=== PATIENT | female | born 1990 | race American Indian/Alaskan Native ===

== ENCOUNTER 2017-08-26 06:27 | Inpatient (IN) | payer MEDICAID ==
[2017-08-26] MEDS ORDERED: KETALAR IV ONE (06:46)
--- NOTE | 2017-08-26 06:48 | Emergency Department Report ---
Upper Extremity - HPI Chief Complaint: Extremity Injury, Upper Stated Complaint: ARM PAIN Time Seen by Provider: 08/26/17 06:42 Upper Extremity: Right Arm Occurred When: Today Mechanism: Fall Severity: severe Symptoms: Yes Pain with Movement, Yes Deformity, Yes Limited Range of Movement, Yes Numbness, Yes Weakness, Yes Swelling, No Bruising/Ecchymosis, No Laceration or Abrasion Other History: This is a 27-year-old female, previously unknown to the provider , right-hand dominant, denies chronic medical conditions. Patient presents to the ER with EMS after mechanical fall, landing on her right arm. Did not hit her head or her neck. Admits to right hand weakness and numbness. No other injuries. Symptoms are constant. ED Review of Systems ROS: Stated complaint: ARM PAIN Other details as noted in HPI Constitutional: denies: fever Eyes: denies: eye discharge ENT: denies: epistaxis Respiratory: denies: cough Cardiovascular: denies: chest pain Gastrointestinal: denies: vomiting Genitourinary: as per HPI Musculoskeletal: arthralgia, myalgia Skin: denies: lesions Neurological: weakness Psychiatric: anxiety ED Past Medical Hx - Past Medical History Previous Medical History?: Yes Additional medical history: chronic knee pain - Surgical History Past Surgical History?: Yes Hx Cholecystectomy: Yes Additional Surgical History: c setion - Social History Smoking Status: Current Every Day Smoker Substance Use Type: Alcohol Upper Extremity Exam - Exam General: Vital signs noted. No distress. Alert and acting appropriately. Sensation is intact in the bilateral deltoid distribution. 2+ radial pulses noted in the bilateral upper extremities. Sensation is decreased to light touch in the right thumb/radial nerve distribution. Thumb opposition is weak to the pointer, middle, ring and pinky finger. Abduction and adduction on fingers 2 through 5 on the right upper extremity also weak and diminished. Decreased sensation to light touch in the dorsal aspect of the right hand. The compartments are soft. 5/5 strength left upper, bilateral lower extremities, sensation intact to light touch left upper, bilateral lower extremities Head and Torso: No HEENT Abnormality, No Neck Tenderness, No Chest/Lungs Abnormality, No Abdominal Tenderness, No Back Tenderness Shoulder Exam: No Shoulder Tenderness, No Clavicle Tenderness, No Shoulder Deformity, No AC Joint Tenderness Arm Exam: Yes Arm/Humerus Tenderness, Yes Arm Deformity Elbow: No Elbow Tenderness, No Elbow Deformity Forearm: No Forearm Tenderness, No Forearm Deformity, No Pain with Pronation, No Pain with Supination Wrist: No Wrist Tenderness, No Normal ROM in Wrist, No Wrist Deformity, No Snuffbox Tenderness, No Pain with Axial Thumb Compression Hand: No Hand Tenderness, No Hand Deformity, No Digit Tenderness, No Normal ROM in Digit(s) [facility] Exam: Yes Normal Distal Pulses, Yes Normal Capillary Refill, No Broken Skin , No Normal Distal Sensation ED Medical Decision Making - Lab Data Result diagrams: 08/26/17 08:05 08/26/17 08:05 Vital Signs 08/26/17 08/26/17 08/26/17 07:00 07:14 07:23 Temperature 97.9 F Pulse Rate 78 99 H Respiratory 18 20 14 Rate Blood Pressure 128/78 157/75 [Left] O2 Sat by Pulse 99 99 99 Oximetry Lab Results 08/26/17 08/26/17 08/26/17 Range/Units 08:05 08:05 08:05 WBC 13.5 H (4.5-11.0) K/mm3 RBC 3.92 (3.65-5.03) M/mm3 Hgb 12.3 (10.1-14.3) gm/dl Hct 37.1 (30.3-42.9) % MCV 95 (79-97) fl MCH 31 (28-32) pg MCHC 33 (30-34) % RDW 12.4 L (13.2-15.2) % Plt Count 220 (140-440) K/mm3 PT 13.9 (12.2-14.9) Sec. INR 1.02 (0.87-1.13) APTT 26.9 (24.2-36.6) Sec. Sodium 136 L (137-145) mmol/L Potassium 3.6 (3.6-5.0) mmol/L Chloride 101.5 (98-107) mmol/L Carbon Dioxide 23 (22-30) mmol/L Anion Gap 15 mmol/L BUN 13 (7-17) mg/dL Creatinine 0.4 L (0.7-1.2) mg/dL Estimated GFR > 60 ml/min BUN/Creatinine Ratio 33 % Glucose 168 H (65-100) mg/dL Calcium 8.1 L (8.4-10.2) mg/dL HCG, Quant (0-4) mIU/mL 08/26/17 Range/Units 08:05 WBC (4.5-11.0) K/mm3 RBC (3.65-5.03) M/mm3 Hgb (10.1-14.3) gm/dl Hct (30.3-42.9) % MCV (79-97) fl MCH (28-32) pg MCHC (30-34) % RDW (13.2-15.2) % Plt Count (140-440) K/mm3 PT (12.2-14.9) Sec. INR (0.87-1.13) APTT (24.2-36.6) Sec. Sodium (137-145) mmol/L Potassium (3.6-5.0) mmol/L Chloride (98-107) mmol/L Carbon Dioxide (22-30) mmol/L Anion Gap mmol/L BUN (7-17) mg/dL Creatinine (0.7-1.2) mg/dL Estimated GFR ml/min BUN/Creatinine Ratio % Glucose (65-100) mg/dL Calcium (8.4-10.2) mg/dL HCG, Quant < 2 (0-4) mIU/mL - Radiology Data Radiology results: report reviewed, image reviewed X-ray of the shoulder demonstrates no shoulder dislocation. There is a distal right-sided humerus fracture. X-ray of the elbow again redemonstrates right- sided humerus fracture - Medical Decision Making Differential diagnosis: Distal radius fracture, radial nerve palsy Assessment and plan: 27-year-old female with distal radius fracture, indication of radial nerve dysfunction. I have emergently consult to the orthopedic physician on-call, Dr. Randhawa, and have described the patient's symptoms and physical exam, and have requested an emergency evaluation for radial nerve compromise. Dr. Randhawa indicates he is going to evaluate the patient, recommends admission, medical team to admit, Dr. Randhawa presumably to operatively intervene. Case was presented to the Hospital physician, Dr. Encarnacion, who accepts the patient to the medical service. Critical care attestation.: If time is entered above; I have spent that time in minutes in the direct care of this critically ill patient, excluding procedure time. ED Disposition Clinical Impression: Right humeral fracture, Radial nerve palsy Disposition: OP ADMIT IP TO THIS HOSP Is pt being admited?: Yes Condition: Good
[2017-08-26] MEDS ORDERED: ZOFRAN IV ONE (07:37)
--- NOTE | 2017-08-26 08:06 | XRay Report ---
FINAL REPORT EXAM: XR ELBOW 1V RT HISTORY: right arm pain COMPARISONS: None. FINDINGS: Lateral portable view of the right elbow Oblique distal right humerus fracture. Posterior subluxation of the distal humerus one full diaphyseal with relative to the proximal humerus. Approximately 1 centimeter of foreshortening. Elbow joint appears intact on this view. IMPRESSION: Oblique extra-articular distal right humerus fracture with subluxation and foreshortening.
--- NOTE | 2017-08-26 08:07 | XRay Report ---
FINAL REPORT EXAM: XR HUMERUS 1V RT HISTORY: right arm pain COMPARISONS: None. FINDINGS: Single portable view of the right humerus Extra-articular distal right humeral diaphyseal fracture is obliquely oriented. There is posterior subluxation of the distal humerus approximately 1 full diaphyseal with. Approximately 1 centimeter of foreshortening. IMPRESSION: Extra-articular distal right humerus fracture with subluxation and foreshortening.
--- NOTE | 2017-08-26 08:08 | XRay Report ---
FINAL REPORT EXAM: XR SHOULDER 1V RT HISTORY: right arm paim COMPARISONS: None. FINDINGS: Single AP view of the right shoulder Distal right humerus fracture discussed on humerus and elbow radiographs of the same date. Remainder of the humerus appears intact. Acromioclavicular and coracoclavicular intervals are within normal limits. No displaced rib fracture identified. Incomplete evaluation of the chest is unremarkable. IMPRESSION: Distal humerus fracture. No other osseous abnormalities identified on this single AP view of the right shoulder.
[2017-08-26 08:28] LABS: Hematocrit 37.1 % (30.3-42.9); Hemoglobin 12.3 gm/dl (10.1-14.3); Mean Corpuscular HGB Conc 33 % (30-34); Mean Corpuscular Hemoglobin 31 pg (28-32); Mean Corpuscular Volume 95 fl (79-97); Platelet Count 220 K/mm3 (140-440); Red Blood Count 3.92 M/mm3 (3.65-5.03); Red Cell Distribution Width 12.4 % (13.2-15.2); White Blood Count 13.5 K/mm3 (4.5-11.0)
[2017-08-26] MEDS ORDERED: REGLAN ONE (08:28)
[2017-08-26] MEDS ORDERED: SUBLIMAZE IV ONE ×2 (08:32→10:44)
[2017-08-26] MEDS ORDERED: REGLAN IV ONE (08:32)
[2017-08-26 08:39] LABS: INR 1.02 (0.87-1.13); Partial Thromboplastin Time 26.9 Sec. (24.2-36.6)
[2017-08-26 08:44] LABS: Blood Urea Nitrogen 13 mg/dL (7-17); Carbon Dioxide 23 mmol/L (22-30)
[2017-08-26 08:45] LABS: Anion Gap 15 mmol/L; BUN/Creatinine Ratio 33; Calcium 8.1 mg/dL (8.4-10.2); Chloride 101.5 mmol/L (98-107); Glucose 168 mg/dL (65-100); Potassium 3.6 mmol/L (3.6-5.0); Sodium 136 mmol/L (137-145)
--- NOTE | 2017-08-26 08:53 | Progress Note ---
Hospitalist Physical - Constitutional Vitals: Temp Pulse Resp BP Pulse Ox 97.9 F 99 H 14 157/75 99 08/26/17 07:00 08/26/17 07:23 08/26/17 07:23 08/26/17 07:23 08/26/17 07:23 Results - Labs CBC & Chem 7: 08/26/17 08:05 08/26/17 08:05 Labs: Laboratory Last Values WBC 13.5 K/mm3 (4.5-11.0) H 08/26/17 08:05 RBC 3.92 M/mm3 (3.65-5.03) 08/26/17 08:05 Hgb 12.3 gm/dl (10.1-14.3) 08/26/17 08:05 Hct 37.1 % (30.3-42.9) 08/26/17 08:05 MCV 95 fl (79-97) 08/26/17 08:05 MCH 31 pg (28-32) 08/26/17 08:05 MCHC 33 % (30-34) 08/26/17 08:05 RDW 12.4 % (13.2-15.2) L 08/26/17 08:05 Plt Count 220 K/mm3 (140-440) 08/26/17 08:05 PT 13.9 Sec. (12.2-14.9) 08/26/17 08:05 INR 1.02 (0.87-1.13) 08/26/17 08:05 APTT 26.9 Sec. (24.2-36.6) 08/26/17 08:05 Sodium 136 mmol/L (137-145) L 08/26/17 08:05 Potassium 3.6 mmol/L (3.6-5.0) 08/26/17 08:05 Chloride 101.5 mmol/L (98-107) 08/26/17 08:05 Carbon Dioxide 23 mmol/L (22-30) 08/26/17 08:05 Anion Gap 15 mmol/L 08/26/17 08:05 BUN 13 mg/dL (7-17) 08/26/17 08:05 Creatinine 0.4 mg/dL (0.7-1.2) L 08/26/17 08:05 Estimated GFR > 60 ml/min 08/26/17 08:05 BUN/Creatinine Ratio 33 % 08/26/17 08:05 Glucose 168 mg/dL (65-100) H 08/26/17 08:05 Calcium 8.1 mg/dL (8.4-10.2) L 08/26/17 08:05 HCG, Quant < 2 mIU/mL (0-4) 08/26/17 08:05
[2017-08-26] MEDS ORDERED: MILK OF MAGNESIA PO PRN (09:01)
[2017-08-26] MEDS ORDERED: TYLENOL PO PRN (09:01)
[2017-08-26] MEDS ORDERED: DULCOLAX PR PRN (10:00)
[2017-08-26] MEDS ORDERED: D5NS 1,000 ML IV SCH (10:00)
[2017-08-26] MEDS ORDERED: SUBLIMAZE IV PRN (11:57)
[2017-08-26] MEDS ORDERED: SUBLIMAZE ONE (15:02)
[2017-08-26] MEDS: MOTRIN PO SCH (15:30)
[2017-08-26] MEDS: SUBLIMAZE IV PRN (20:00)
[2017-08-27] MEDS: ZOFRAN IV PRN ×2 (04:05→21:30)
[2017-08-27] MEDS: SUBLIMAZE IV PRN ×2 (04:05→09:18)
[2017-08-27] MEDS ORDERED: PEPCID PO NR (10:00)
[2017-08-27] MEDS: MOTRIN PO SCH ×2 (10:30→22:34)
--- NOTE | 2017-08-27 14:01 | Progress Note ---
Assessment and Plan Assessment and plan: Displaced Fracture right humerus with radial nerve injury after fall. patient has been admitted to med/surg floor. Right upper extremity in splint. For surgery today. Patient is allergic to Nalbuphine. Continue Fentanyl iv prn for pain management. Right radial nerve injury due to fracture humerus. Patient right arm in splint. DVT prophylaxis. Lovenox Full code status History Interval history: Less pain on right arm Still have numbness right upper ext Hospitalist Physical - Physical exam Narrative exam: Gen Appearance: Not in acute distress, HEENT: normocephalic, atraumatic Neck: supple, no JVD Lungs: Clear to auscultation bilaterally, no crackles, no wheezing, Heart: S1 and S2 regular, no murmurs,no rubs or gallop, Abdomen: Soft , non tender, non distended, normal bowel sounds Extremity: right upper extremity deformed, in splint, less tender, no clubbing or cyanosis, Neuro : Awake,alert, oriented x 3, normal speech, moves all extremities, decreased sensation distribution of radial nerve on right - Constitutional Vitals: Temp Pulse Resp BP Pulse Ox 98.9 F 67 18 120/79 98 08/27/17 08:10 08/27/17 08:10 08/27/17 10:30 08/27/17 08:10 08/27/17 08:10 Results - Labs CBC & Chem 7: 08/28/17 05:43 08/28/17 05:43 Labs: Laboratory Last Values WBC 13.5 K/mm3 (4.5-11.0) H 08/26/17 08:05 RBC 3.92 M/mm3 (3.65-5.03) 08/26/17 08:05 Hgb 12.3 gm/dl (10.1-14.3) 08/26/17 08:05 Hct 37.1 % (30.3-42.9) 08/26/17 08:05 MCV 95 fl (79-97) 08/26/17 08:05 MCH 31 pg (28-32) 08/26/17 08:05 MCHC 33 % (30-34) 08/26/17 08:05 RDW 12.4 % (13.2-15.2) L 08/26/17 08:05 Plt Count 220 K/mm3 (140-440) 08/26/17 08:05 PT 13.9 Sec. (12.2-14.9) 08/26/17 08:05 INR 1.02 (0.87-1.13) 08/26/17 08:05 APTT 26.9 Sec. (24.2-36.6) 08/26/17 08:05 Sodium 136 mmol/L (137-145) L 08/26/17 08:05 Potassium 3.6 mmol/L (3.6-5.0) 08/26/17 08:05 Chloride 101.5 mmol/L (98-107) 08/26/17 08:05 Carbon Dioxide 23 mmol/L (22-30) 08/26/17 08:05 Anion Gap 15 mmol/L 08/26/17 08:05 BUN 13 mg/dL (7-17) 08/26/17 08:05 Creatinine 0.4 mg/dL (0.7-1.2) L 08/26/17 08:05 Estimated GFR > 60 ml/min 08/26/17 08:05 BUN/Creatinine Ratio 33 % 08/26/17 08:05 Glucose 168 mg/dL (65-100) H 08/26/17 08:05 Calcium 8.1 mg/dL (8.4-10.2) L 08/26/17 08:05 HCG, Quant < 2 mIU/mL (0-4) 08/26/17 08:05 Blood Type A POSITIVE 08/26/17 08:05 Antibody Screen Negative 08/26/17 08:05
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
[2017-08-27] MEDS: LACTATED RINGERS 1,000 ML IV SCH ×2 (14:54→21:38)
[2017-08-27] MEDS: VERSED IV NR ×2 (14:55→15:35)
[2017-08-27] MEDS ORDERED: DILAUDID IV ONE (15:05)
--- NOTE | 2017-08-27 15:14 | Anesthesia Consultation ---
Anesthesia Consult and Med Hx Date of service: 08/27/17 - Airway Anesthetic Teeth Evaluation: Good ROM Head & Neck: Adequate Mental/Hyoid Distance: Adequate Mallampati Class: Class I Intubation Access Assessment: Good - Pulmonary Exam CTA: Yes - Cardiac Exam Cardiac Exam: RRR - Pre-Operative Health Status ASA Pre-Surgery Classification: ASA2 Proposed Anesthetic Plan: General Nerve Block: IS - Pulmonary Hx Smoking: Yes Hx Asthma: No COPD: No Hx Pneumonia: No - Central Nervous System Hx Psychiatric Problems: No - Endocrine Hx End Stage Renal Disease: No
--- NOTE | 2017-08-27 15:14 | Anesthesia Day of Surgery ---
Anesthesia Day of Surgery - Day of Surgery Patient Examined: Yes Patient H&P Reviewed: Yes Patient is NPO: Yes
[2017-08-27] MEDS ORDERED: MARCAINE 0.5% 30 ML INFILTRATI ONE (15:25)
[2017-08-27] MEDS ORDERED: ADRENALIN ONE (15:27)
[2017-08-27] MEDS ORDERED: DILAUDID ONE (16:17)
[2017-08-27] MEDS ORDERED: DIPRIVAN 10 MG/ML IV ONE (16:17)
[2017-08-27] MEDS ORDERED: XYLOCAINE MPF 2% ONE (16:17)
[2017-08-27] MEDS ORDERED: ANCEF ONE (17:05)
[2017-08-27] MEDS ORDERED: ZOFRAN ONE (18:24)
[2017-08-27] MEDS ORDERED: DECADRON ONE (18:24)
[2017-08-27] MEDS: DILAUDID IV PRN ×2 (19:01→21:29)
--- NOTE | 2017-08-27 20:05 | Post Anesthesia Evaluation ---
- Post Anesthesia Evaluation Patient Participated: Yes Airway Patent: Yes Stable Respiratory Function: Yes Temp > 96.8F: Yes Pain Manageable: Yes Adequeate Hydration: Yes Anesthesia Complications: No
--- NOTE | 2017-08-27 22:57 | Procedure Note ---
Date of procedure: 08/27/17 Pre-op diagnosis: displaced right radial shaft fracture with radial nerve palsy Post-op diagnosis: same Procedure: Open reduction internal fixation right humerus Indication A 27-year-old female who came to the emergency room complaining of right arm pain and deformity after a fall from her bed, x-rays taken in the emergency room reveal a displaced distal third right humerus fracture patient was also noted to have a radial nerve palsy with the inability to actively extend the wrist and loss of sensation in the radial nerve distribution Procedure Brought to the OR after being given a scalene nerve block for postop pain management, she was placed on the OR table in a supine position following induction and intubation by anesthesia the patient was turned to into the left lateral decubitus position at which point the right shoulder and arm was prepped and draped in the usual sterile manner. A timeout procedure was done to identify the patient and the correct operative site. The arm was exsanguinated followed by inflation of the pneumatic tourniquet to 250 mmHg. A posterior incision was made along the humerus and this was taken down through skin and subcutaneous the tendon of the triceps muscle was incised as well as the muscle belly this brought us down on the posterior aspect of the humeral shaft Care was taken to identify the radial nerve was seen and appeared to be intact however there was some bruising noted along the along the epineurium but again the nerve was intact and would not severed using a vessel loop the nerve was then retracted out of the operative field and our dissection was carried to the proximal fragment following manipulation the bony fragments were temporarily fixed using a interfragmentary screw. Next a a long lateral locked plate was applied to the humeral surface was then secured to the bone by way of locked screws of various lengths using the C-arm fluoroscope the reduction was checked as well as the placement of our hardware and the fracture appeared anatomic and the screws appeared to grab both the near and far cortices. Stability was checked and it appeared to be quite stable next the wound was then copiously irrigated the triceps muscle and tendon was repaired followed by closure of the subcutaneous tissue and skin with metallic isabella routine post op Dressings were applied. 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
[2017-08-28] MEDS: MOTRIN PO SCH ×8 (01:06→23:19)
[2017-08-28] MEDS: ZOFRAN IV PRN (02:30)
[2017-08-28 05:56] LABS: Hematocrit 33.6 % (30.3-42.9); Hemoglobin 11.4 gm/dl (10.1-14.3); Mean Corpuscular HGB Conc 34 % (30-34); Mean Corpuscular Hemoglobin 33 pg (28-32); Mean Corpuscular Volume 96 fl (79-97); Platelet Count 204 K/mm3 (140-440); Red Blood Count 3.51 M/mm3 (3.65-5.03); Red Cell Distribution Width 12.3 % (13.2-15.2); White Blood Count 9.3 K/mm3 (4.5-11.0)
[2017-08-28 06:18] LABS: Anion Gap 18 mmol/L; BUN/Creatinine Ratio 16; Blood Urea Nitrogen 8 mg/dL (7-17); Calcium 8.7 mg/dL (8.4-10.2); Carbon Dioxide 26 mmol/L (22-30); Chloride 99.2 mmol/L (98-107); Glucose 135 mg/dL (65-100); Sodium 139 mmol/L (137-145)
--- NOTE | 2017-08-28 08:13 | XRay Report ---
RIGHT ELBOW 2 VIEWS: 08/26/17 09:02:00 CLINICAL: Intraoperative exam FINDINGS: 2 views demonstrate a a plate and screws at the humeral diaphysis and metaphysis. The plate traverses a fracture which is not well delineated. There is cortical offset at the fracture. For more details, refer to the operative report.
--- NOTE | 2017-08-28 10:41 | Progress Note ---
Subjective Date of service: 08/28/17 Interval history: 1st POD after ORIF of right humerus Patient is in the bed, comfortable. Pain is well controlled with pain meds. Ambulated well. No nausea or vomiting. Block receding appropriately. No anesthesia complications Objective - Constitutional Vitals: Vital Signs - 12hr 08/27/17 08/28/17 08/28/17 23:46 04:18 07:10 Temperature 98.3 F 98.0 F 98.2 F Pulse Rate 70 74 72 Respiratory 18 18 16 Rate Blood Pressure 138/82 124/77 128/69 O2 Sat by Pulse 97 100 98 Oximetry - Labs CBC & Chem 7: 08/28/17 05:43 08/28/17 05:43 Labs: Abnormal lab results 08/28/17 08/28/17 Range/Units 05:43 05:43 RBC 3.51 L (3.65-5.03) M/mm3 MCH 33 H (28-32) pg RDW 12.3 L (13.2-15.2) % Creatinine 0.5 L (0.7-1.2) mg/dL Glucose 135 H (65-100) mg/dL
--- NOTE | 2017-08-28 11:48 | Progress Note ---
Assessment and Plan Assessment and plan: Displaced Fracture right humerus with radial nerve injury after fall. Patient has been admitted to med/surg floor. She had open reduction and internal fixation right humerus yesterday by Dr. Randhawa. Patient is allergic to Nalbuphine, has been on Fentanyl iv prn for pain management. Will switch to Percocet. She states she is not allergic to Percocet and has used before with no adverse reaction. Right radial nerve palsy due to injury due to fracture of humerus. s/p surgery yesterday May need wrist brace on discharge. DVT prophylaxis. Lovenox Full code status History Interval history: Less pain on right arm, post op Still have numbness right upper ext Hospitalist Physical - Physical exam Narrative exam: Gen Appearance: Not in acute distress, HEENT: normocephalic, atraumatic Neck: supple, no JVD Lungs: Clear to auscultation bilaterally, no crackles, no wheezing, Heart: S1 and S2 regular, no murmurs,no rubs or gallop, Abdomen: Soft , non tender, non distended, normal bowel sounds Extremity: right upper extremity covered with dressing, bandage Neuro : Awake,alert, oriented x 3, normal speech, decreased sensation distribution of radial nerve on right, wrist drop on right - Constitutional Vitals: Temp Pulse Resp BP Pulse Ox 98.2 F 72 16 128/69 98 08/28/17 07:10 08/28/17 07:10 08/28/17 07:10 08/28/17 07:10 08/28/17 10:47 General appearance: Present: no acute distress Results - Labs CBC & Chem 7: 08/28/17 05:43 08/28/17 05:43 Labs: Laboratory Last Values WBC 9.3 K/mm3 (4.5-11.0) 08/28/17 05:43 RBC 3.51 M/mm3 (3.65-5.03) L 08/28/17 05:43 Hgb 11.4 gm/dl (10.1-14.3) 08/28/17 05:43 Hct 33.6 % (30.3-42.9) 08/28/17 05:43 MCV 96 fl (79-97) 08/28/17 05:43 MCH 33 pg (28-32) H 08/28/17 05:43 MCHC 34 % (30-34) 08/28/17 05:43 RDW 12.3 % (13.2-15.2) L 08/28/17 05:43 Plt Count 204 K/mm3 (140-440) 08/28/17 05:43 PT 13.9 Sec. (12.2-14.9) 08/26/17 08:05 INR 1.02 (0.87-1.13) 08/26/17 08:05 APTT 26.9 Sec. (24.2-36.6) 08/26/17 08:05 Sodium 139 mmol/L (137-145) 08/28/17 05:43 Potassium 4.0 mmol/L (3.6-5.0) 08/28/17 05:43 Chloride 99.2 mmol/L (98-107) 08/28/17 05:43 Carbon Dioxide 26 mmol/L (22-30) 08/28/17 05:43 Anion Gap 18 mmol/L 08/28/17 05:43 BUN 8 mg/dL (7-17) 08/28/17 05:43 Creatinine 0.5 mg/dL (0.7-1.2) L 08/28/17 05:43 Estimated GFR > 60 ml/min 08/28/17 05:43 BUN/Creatinine Ratio 16 % 08/28/17 05:43 Glucose 135 mg/dL (65-100) H 08/28/17 05:43 Calcium 8.7 mg/dL (8.4-10.2) 08/28/17 05:43 HCG, Quant < 2 mIU/mL (0-4) 08/26/17 08:05 Blood Type A POSITIVE 08/26/17 08:05 Antibody Screen Negative 08/26/17 08:05
[2017-08-28] MEDS: PERCOCET 5/325 PO PRN ×3 (12:50→20:35)
--- NOTE | 2017-08-28 13:17 | Progress Note ---
Assessment and Plan s/p ORIF right humerus, radial nerve palsy... will order wrist brace for wrist drop, hopefully dc to home soon Subjective Date of service: 08/28/17 Interval history: feeling much better today, less pain although still with some neuropathic symtoms right hand... Objective Vital signs: Vital Signs - 12hr 08/28/17 08/28/17 08/28/17 04:18 07:10 10:47 Temperature 98.0 F 98.2 F Pulse Rate 74 72 Respiratory 18 16 Rate Blood Pressure 124/77 128/69 O2 Sat by Pulse 100 98 98 Oximetry Narrative Exam: post op dressing intact, no active ext right wrist, good capillary refill... - Labs CBC & BMP: 08/28/17 05:43 08/28/17 05:43 Labs: Abnormal lab results 08/28/17 08/28/17 Range/Units 05:43 05:43 RBC 3.51 L (3.65-5.03) M/mm3 MCH 33 H (28-32) pg RDW 12.3 L (13.2-15.2) % Creatinine 0.5 L (0.7-1.2) mg/dL Glucose 135 H (65-100) mg/dL
[2017-08-28] MEDS ORDERED: LOVENOX SUB-Q SCH (22:00)
[2017-08-29] MEDS: MOTRIN PO SCH ×3 (04:26→16:20)
[2017-08-29] MEDS: PERCOCET 5/325 PO PRN ×2 (07:44→14:03)
--- NOTE | 2017-08-29 12:53 | Progress Note ---
Assessment and Plan will dc today with return f/u appointment 1 wk Subjective Date of service: 08/29/17 Interval history: doing well, no c/o's Objective Vital signs: Vital Signs - 12hr 08/29/17 08/29/17 08/29/17 05:15 07:50 07:53 Temperature 98.3 F Pulse Rate 99 H 68 Respiratory 17 Rate Blood Pressure 107/78 Blood Pressure [Left] O2 Sat by Pulse 100 100 100 Oximetry 08/29/17 08/29/17 08:00 12:14 Temperature 99 F 98.8 F Pulse Rate 78 90 Respiratory 18 18 Rate Blood Pressure 117/72 Blood Pressure 119/79 [Left] O2 Sat by Pulse 99 Oximetry - Labs CBC & BMP: 08/28/17 05:43 08/28/17 05:43
[2017-08-29 13:23] LABS: Hematocrit 31.2 % (30.3-42.9); Hemoglobin 10.2 gm/dl (10.1-14.3); Mean Corpuscular HGB Conc 33 % (30-34); Mean Corpuscular Hemoglobin 32 pg (28-32); Mean Corpuscular Volume 96 fl (79-97); Platelet Count 196 K/mm3 (140-440); Red Blood Count 3.24 M/mm3 (3.65-5.03); Red Cell Distribution Width 12.3 % (13.2-15.2); White Blood Count 7.6 K/mm3 (4.5-11.0)
[2017-08-29 13:41] LABS: Anion Gap 13 mmol/L; BUN/Creatinine Ratio 28; Blood Urea Nitrogen 11 mg/dL (7-17); Calcium 8.4 mg/dL (8.4-10.2); Carbon Dioxide 29 mmol/L (22-30); Glucose 99 mg/dL (65-100); Potassium 3.8 mmol/L (3.6-5.0); Sodium 139 mmol/L (137-145)
[2017-08-29 17:20] VITALS: BP 121/75
--- NOTE | 2017-08-29 18:15 | Discharge Summary ---
Providers - Providers Date of Admission: 08/26/17 09:02 Attending physician: SARY STEPHENS MD Primary care physician: [employer] Hospitalization Condition: Good Disposition: DC-01 TO HOME OR SELFCARE Core Measure Documentation - Palliative Care Palliative Care/ Comfort Measures: Not Applicable Exam - Constitutional Vitals: Temp Pulse Resp BP Pulse Ox 98.5 F 74 18 121/75 100 08/29/17 15:59 08/29/17 15:59 08/29/17 15:59 08/29/17 15:59 08/29/17 15:59 Plan Follow up with: PRIMARY CARE, [Primary Care Provider] - 3-5 Days Prescriptions: oxyCODONE /ACETAMINOPHEN [Percocet 5/325 mg] 1 tab PO Q6HR PRN #40 tablet PRN Reason: Pain Pregabalin [Lyrica] 75 mg PO BID #30 cap
== END 2017-08-29 16:30 | disposition home or self-care (01) | DRG 512 ==
LOC: ED 06:27 → 3B-SURG 09:02
PROVIDERS: ADMIT Internal Medicine; ATTEND Internal Medicine
PROC: 2W38X1Z Immobilization of Right Upper Extremity using Splint (ICD-10-PCS; 2017-08-26)
PROC: 0PSH04Z Reposition Right Radius with Internal Fixation Device, Open Approach (ICD-10-PCS; principal; 2017-08-27)
DX: S52.331A Displaced oblique fracture of shaft of right radius, initial encounter for closed fracture (principal); G56.30 Lesion of radial nerve, unspecified upper limb; G89.22 Chronic post-thoracotomy pain; F10.10 Alcohol abuse, uncomplicated; Y90.9 Presence of alcohol in blood, level not specified; F17.210 Nicotine dependence, cigarettes, uncomplicated; M25.569 Pain in unspecified knee; W06.XXXA Fall from bed, initial encounter; Z88.8 Allergy status to other drugs, medicaments and biological substances; Z90.49 Acquired absence of other specified parts of digestive tract; Z90.710 Acquired absence of both cervix and uterus; Y93.89 Activity, other specified; Y92.092 Bedroom in other non-institutional residence as the place of occurrence of the external cause; Y99.8 Other external cause status
CPT/HCPCS: 36415; 80048; 84702; 85027; 85610; 85730; 86850; 86900; 86901; 94760; 96374; 96375; C1713; J0171; J0690; J1100; J1170; J1650; J2250; J2405; J2704; J2765; J3010; J7042; J7120